=== PATIENT | female | born 2005 | race Caucasian/White ===

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

== ENCOUNTER 2024-03-09 03:19 | Emergency (ER) | payer SELFPAY ==
[~2024-03-09] VITALS: Ht 167.6 cm; Wt 48.1 kg
[~2024-03-09 03:19] MED LIST changes: +ONDANSETRON4 MG SL
[2024-03-09] MEDS ORDERED: ACETAMINOPHEN 325 MG TAB PO ONE (03:35)
[2024-03-09] MEDS ORDERED: MELOXICAM15 MG PO (06:45)
== END 2024-03-09 06:53 | disposition home or self-care (01) ==
LOC: ED 03:19
DX: S09.90XA Unspecified injury of head, initial encounter (principal); Z88.0 Allergy status to penicillin; W22.8XXA Striking against or struck by other objects, initial encounter; Y93.89 Activity, other specified; Y92.89 Other specified places as the place of occurrence of the external cause; Y99.8 Other external cause status